=== PATIENT | female | born 1980 | race Caucasian/White ===

== ENCOUNTER 2018-03-14 14:14 | Emergency (ER) | payer OTHER ==
[2018-03-14 14:43] VITALS: BP 112/65
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
== END 2018-03-14 17:36 | disposition home or self-care (01) ==
LOC: ED 14:14
DX: M62.830 Muscle spasm of back (principal)
CPT/HCPCS: 99282